=== PATIENT | female | born 1940 | race Caucasian/White ===

== ENCOUNTER → 2017-04-29 | Outpatient (CLI) | payer MEDICARE, BC ==
[~2017-04-29] MED LIST: REGADENOSON 0.4 MG/5 ML DISP.SYRIN. IV ONE
--- NOTE | 2017-04-30 15:03 | PCVCIMAG ---
APPROVED REPORT Exam: Nuclear Stress Test Indication: Atrial Fibrillation Patient Location: Out-Patient Stress Nurse: Maria Ines Caicedo RN, GENOVEVA Guallpa Tech:ANGIE Pena Ht: 5 ft 2 in Wt: 166 lbs BSA: 1.77 m2 HR: 75 bpm BP: 135/73 mmHg BMI: 30.3 Rhythm: NSR W/FREQUENT PVCs, TWAVE ABN Medical History Medical History: AGE, HTN, AFIB Medications: Altace, KDur, Toprol XL, Lipitor, Eliquis Allergies: SEE CHART, NONE RELATED TO ROM/NUC TEST Pretest Chest Pain Characteristics: No chest pain Exercise History: Sedentary Meds Held (24 hrs): Metoprolol NM EXAM: Myocardial Perfusion REST/STRESS Imaging Protocol: Rest Tc-99m/Stress Tc-99m 1 day Resting Data Rest SPECT myocardial perfusion imaging was performed in supine position 45 minutes following the intravenous injection of 11.5 mCi of Tc-99m Sestamibi. Time of rest injection: 754 Date: 04/29/2017 Administration Route: IV Administration Site: Right Arm Pharmacologic Stress Pharmacologic stress test was performed by injecting Regadenoson 0.4 mg IV push followed by the intravenous injection of 34.9 mCi of Tc-99m Sestamibi. Time of stress injection: 914 Date: 04/29/2017 Administration Route: IV Administration Site: Right Arm Gated Stress SPECT was performed 45 minutes after stress injection. The images were gated to evaluate regional wall motion and calculate left ventricular ejection fraction. Study Quality Study: Good Study Data Post stress, the left ventricular ejection was 58%.. SSS: 1 SRS: 0 SDS: 1 TID = 1.04. Perfusion No evidence of stress induced ischemia or prior myocardial infarction. Wall Motion Normal left ventricular size and function with no regional wall motion abnormalities. Nuclear Conclusion No evidence of stress induced ischemia or prior myocardial infarction. Normal left ventricular size and function with no regional wall motion abnormalities. Post stress, the left ventricular ejection was 58%.. No prior study available for comparison. Interpreted by: Carlos Prater MD Electronically Approved: 04/30/2017 14:35:29 Stress Test Details Stress Test: Pharmacologic stress testing performed using 0.4 mg of regadenoson per 5 mL given IV over 10 seconds. Reason for pharmacologic stress test: KNEE ISSUES. HR Resting HR: 75 bpmMax Heart Rate (APMHR): 142 bpm Max HR Achieved: 136 bpmTarget HR (85% APMHR): 120 bpm % of APMHR: 95 Recovery HR: 92 bpm BP Resting BP: 135/73 mmHg Max BP: 181/82 mmHg ECG Resting ECG: Sinus Rhythm, PVCs, T-Wave abnormality Stress ECG: Freq PVCs, Tachyarrhythmia, ST depression ST Change: Downsloping ST depression Maximum ST Deviation: 1.3 mm Arrhythmia: SVT vs AFib Recovery ECG: Sinus Rhythm, nonspecific ST-T abnormalities Recovery Arrhythmia: Paroxysmal periods of SVT vs AFib, persisiting into post recovery Clinical Reason for Termination: Completed protocol Stress Symptoms: LIGHT HEADED, CHEST HEAVINESS, HANDS TINGLING Exercise duration: 0 min 55 sec Exercise capacity: 1.0 METs Nurse Comments Pt felt shaky and lightheaded in waiting room. Taken to holding area for monitoring. Paroxysmal periods of SVT vs AFib, persisiting well into post recovery. Home dose of Metoprolol 25 mg given along with Ramipril. Did start to feel better approximately one hour later. Rest images done. Dr Cali notified re patient's episode. To office for visit with Dr Cali. Stress ECG Conclusion equiv changes non diagnostic <Conclusion> equiv changes non diagnostic
== END | disposition home or self-care (01) ==
LOC: PCVCIMAG 07:28
PROVIDERS: ATTEND Internal Medicine Cardiovascular Disease
DX: I48.91 Unspecified atrial fibrillation (principal); I10 Essential (primary) hypertension; E78.01 Familial hypercholesterolemia; R94.31 Abnormal electrocardiogram [ECG] [EKG]; Z86.718 Personal history of other venous thrombosis and embolism; Z79.899 Other long term (current) drug therapy
CPT/HCPCS: 78452; 80061; 93005; 93017; A9500; G0463; J2785

== ENCOUNTER → 2017-11-09 | Outpatient (CLI) | payer MEDICARE, BC | END | disposition home or self-care (01) | LOC: PCVCCLINIC 15:51 | DX: I48.91 Unspecified atrial fibrillation (principal); E78.01 Familial hypercholesterolemia; I10 Essential (primary) hypertension; Z86.718 Personal history of other venous thrombosis and embolism; Z79.899 Other long term (current) drug therapy; Z88.8 Allergy status to other drugs, medicaments and biological substances | CPT/HCPCS: 80061; 93005; G0463 ==

== ENCOUNTER → 2018-07-26 | Outpatient (CLI) | payer MEDICARE, BC | END | disposition home or self-care (01) | LOC: PCVCCLINIC 13:49 | PROVIDERS: ATTEND Internal Medicine Cardiovascular Disease | DX: I48.0 Paroxysmal atrial fibrillation (principal); R94.31 Abnormal electrocardiogram [ECG] [EKG]; I10 Essential (primary) hypertension; E78.00 Pure hypercholesterolemia, unspecified; Z88.8 Allergy status to other drugs, medicaments and biological substances; Z79.899 Other long term (current) drug therapy | CPT/HCPCS: 36415; 80061; 93005; G0463 ==

== ENCOUNTER → 2019-02-02 | Outpatient (CLI) | payer MEDICARE, BC | END | disposition home or self-care (01) | LOC: PCVCCLINIC 14:37 | PROVIDERS: ATTEND Internal Medicine Cardiovascular Disease | DX: I48.0 Paroxysmal atrial fibrillation (principal); E78.5 Hyperlipidemia, unspecified; M19.90 Unspecified osteoarthritis, unspecified site; Z86.718 Personal history of other venous thrombosis and embolism; Z88.8 Allergy status to other drugs, medicaments and biological substances; Z79.899 Other long term (current) drug therapy | CPT/HCPCS: 36415; 80061; 93005; G0463 ==